=== PATIENT | female | born 2000 | race Caucasian/White ===

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

== ENCOUNTER 2020-11-11 10:42 | Emergency (ER) | payer OTHER ==
[~2020-11-11 10:42] MED LIST: COLACE 100MG C100 MG PO; FERROUS SULFAT325 M2 PO; IBUPROFEN600 MG PO; IBUPROFEN800 MG PO; LORTAB 5-325 M1 EACH PO; POTASSIUM99 M1 PO; PROTONIX40 MG PO; PROVENTIL HFA6.7 GM INH; TESSALON PERLE100 MG PO; TRANDATE 300 M300 MG PO
[2020-11-11 11:35] LABS: HEMOGLOBIN 14.4 gm/dl (12.3-15.3); RED BLOOD COUNT 4.62 M/UL (4.00-5.10); WHITE BLOOD COUNT 11.2 K/UL (4.5-11.0)
[2020-11-11 11:55] LABS: BUN/CREATININE RATIO 8 (0-10)
[2020-11-11] MEDS ORDERED: IBU600 MG PO (16:59)
[2020-11-11] MEDS ORDERED: CIPRO500 MG PO (16:59)
[2020-11-11] MEDS ORDERED: FLAGYL500 MG PO (16:59)
[2020-11-11] MEDS ORDERED: ZOFRAN ODT 4 MG4 MG PO (16:59)
[2020-11-11] MEDS ORDERED: BENTYL 10MG CAP10 MG PO (16:59)
[2020-11-11] MEDS ORDERED: K-DUR TAB 20 M20 MEQ PO (17:03)
== END 2020-11-11 17:33 | disposition home or self-care (01) ==
LOC: ER1 10:42
PROVIDERS: Nurse Practitioner
DX: K80.20 Calculus of gallbladder without cholecystitis without obstruction (principal); E87.6 Hypokalemia; I10 Essential (primary) hypertension; F17.210 Nicotine dependence, cigarettes, uncomplicated; Z88.0 Allergy status to penicillin
CPT/HCPCS: 76705; 80053; 80307; 81001; 83605; 83690; 84703; 85025; 93005; 96365; 96372; 96375; 96376; 99284; J0500; J2270; J2405; J7030; Q9967

== ENCOUNTER 2020-12-08 02:19 | Inpatient (IN) | payer OTHER ==
[~2020-12-08] VITALS: Ht 172.7 cm; Wt 61.2 kg
[~2020-12-08 02:19] MED LIST changes: +BENTYL 10MG CAP10 MG PO; +CIPRO500 MG PO; +FLAGYL500 MG PO; +IBU600 MG PO; +K-DUR TAB 20 M20 MEQ PO; +ZOFRAN ODT 4 MG4 MG PO
[2020-12-08 03:36] LABS: HEMOGLOBIN 14.8 gm/dl (12.3-15.3); RED BLOOD COUNT 4.72 M/UL (4.00-5.10)
[2020-12-08 03:59] LABS: BUN/CREATININE RATIO 14 (0-10)
[2020-12-09 05:56] LABS: HEMOGLOBIN 11.6 gm/dl (12.3-15.3); RED BLOOD COUNT 3.85 M/UL (4.00-5.10); WHITE BLOOD COUNT 6.1 K/UL (4.5-11.0)
[2020-12-09 06:20] LABS: BUN/CREATININE RATIO 8 (0-10)
[2020-12-09] MEDS ORDERED: HYDROCODON-ACE1 EAC4 PO (15:27)
--- NOTE | 2020-12-09 16:27 | NUR ---
PATIENT RETURNED TO FLOOR AFTER SURGICAL PROCEDURE. LAP SITES ARE INTACT WITH DERMABOND, 4 NOTED. IV NOW IN LEFT AC, 20 G WITH IVF INFUSING PER PHYSICIAN'S ORDER. PATIENT IS ALERT, IS CRYING AND DENYING PAIN. MOST LIKELY RELATED TO ANESTHESIA.
--- NOTE | 2020-12-09 17:47 | NUR ---
PATIENT IN ROOM KICKING, SCREAMING, AND CURSING AT STAFF. PATIENT IS COMBATIVE AND ABUSIVE TOWARD STAFF. ALSO SCREAMING AT HER MOTHER. PATIENT WISHES TO LEAVE HOSPITAL AT THIS TIME. PATIENT SIGNED AGAINST MEDICAL ADVICE FORM, DOCTORS AWARE.
== END 2020-12-09 17:57 | disposition left against medical advice (07) | DRG 418 ==
LOC: ER1 02:19 → M/S 05:05 → CDU 05:05 → M/S 15:14
PROVIDERS: Physician Assistant; Surgery; ADMIT Internal Medicine
PROC: 0FT44ZZ Resection of Gallbladder, Percutaneous Endoscopic Approach (ICD-10-PCS; principal; 2020-12-09 15:00)
DX: K85.10 Biliary acute pancreatitis without necrosis or infection (principal); Q21.1 Atrial septal defect; E87.6 Hypokalemia; N30.90 Cystitis, unspecified without hematuria; Z53.29 Procedure and treatment not carried out because of patient's decision for other reasons; I10 Essential (primary) hypertension; Z90.89 Acquired absence of other organs; Z88.6 Allergy status to analgesic agent; Z84.89 Family history of other specified conditions
CPT/HCPCS: 36415; 80053; 81001; 83690; 84703; 85025; 87077; 87086; 87186; 96365; 96375; 99285; C9113; J0696; J1100; J2001; J2250; J2270; J2405; J2704; J2710; J3010; J3480; J7030; J7120; Q9967; U0002

== ENCOUNTER 2021-07-09 19:50 | Emergency (ER) | payer OTHER ==
[~2021-07-09 19:50] MED LIST changes: +HYDROCODON-ACE1 EAC4 PO
[2021-07-09 21:53] LABS: HEMOGLOBIN 13.2 gm/dl (12.3-15.3); RED BLOOD COUNT 4.08 M/UL (4.00-5.10); WHITE BLOOD COUNT 7.9 K/UL (4.5-11.0)
[2021-07-09 22:19] LABS: BUN/CREATININE RATIO 12 (0-10)
[2021-07-09] MEDS ORDERED: IBUPROFEN600 MG PO (22:56)
[2021-07-09] MEDS ORDERED: CEPHALEXIN500 M1 PO (22:56)
== END 2021-07-09 23:45 | disposition home or self-care (01) ==
LOC: ER1 19:50
PROVIDERS: Physician Assistant Medical
DX: N39.0 Urinary tract infection, site not specified (principal); I10 Essential (primary) hypertension; F17.200 Nicotine dependence, unspecified, uncomplicated; Z88.0 Allergy status to penicillin; Z90.49 Acquired absence of other specified parts of digestive tract
CPT/HCPCS: 80053; 81001; 83605; 84703; 85025; 85652; 86140; 99284; J2405; Q9967